=== PATIENT | female | born 1955 | race Caucasian/White ===

== ENCOUNTER → 2021-06-17 | Outpatient (CLI) | payer OTHER, MEDICAID ==
[~2021-06-17] MED LIST: AMITRIPTYLINE100 MG PO; BELSOMRA15 MG PO; COZAAR 25 MG TA25 M1 PO; CYMBALTA30 MG PO; CYMBALTA60 MG PO; FLEXERIL PO; HUMALOG100 UNIT/1 SUBQ; HYDROCODON-ACE1 EAC7 PO; LANTUS SUBQ; LEVO-T25 MCG PO; NEURONTIN300 MG PO; NEXIUM 40 MG CA40 M1 PO; NORVASC10 MG PO; ONDANSETRON HCL4 M2 PO; PERCOCET 10-321 EAC1 PO; PERCOCET 7.5-31 EAC1 PO; TOPROL XL25 MG PO; ZENPEP DR 15,01 EACH PO
== END ==
LOC: M.PC 10:14
PROVIDERS: ATTEND Anesthesiology Pain Medicine
DX: M54.16 Radiculopathy, lumbar region (principal); B02.9 Zoster without complications; E11.9 Type 2 diabetes mellitus without complications; E11.622 Type 2 diabetes mellitus with other skin ulcer; F32.9 Major depressive disorder, single episode, unspecified; F41.9 Anxiety disorder, unspecified; K76.0 Fatty (change of) liver, not elsewhere classified; Z86.73 Personal history of transient ischemic attack (TIA), and cerebral infarction without residual deficits

== ENCOUNTER → 2021-06-26 | Outpatient (CLI) | payer OTHER, MEDICAID | END | disposition home or self-care (01) | LOC: M.PC 10:10 | PROVIDERS: ATTEND Anesthesiology Pain Medicine | DX: G89.29 Other chronic pain (principal); M54.16 Radiculopathy, lumbar region; M25.561 Pain in right knee; Z98.890 Other specified postprocedural states; Z79.899 Other long term (current) drug therapy ==

== ENCOUNTER → 2021-07-24 | Outpatient (CLI) | payer OTHER, MEDICAID ==
[~2021-07-24] MED LIST changes: +LIDODERM1 EACH TOP; +NEURONTIN600 MG PO
== END ==
LOC: M.PC 09:10
PROVIDERS: ATTEND Anesthesiology Pain Medicine
DX: M54.16 Radiculopathy, lumbar region (principal); M54.17 Radiculopathy, lumbosacral region; M96.1 Postlaminectomy syndrome, not elsewhere classified; I10 Essential (primary) hypertension; E11.9 Type 2 diabetes mellitus without complications; Z90.49 Acquired absence of other specified parts of digestive tract; Z79.4 Long term (current) use of insulin; Z79.899 Other long term (current) drug therapy

== ENCOUNTER → 2021-08-05 | Outpatient (CLI) | payer OTHER, MEDICAID ==
[~2021-08-05] MED LIST changes: +VITAMIN D31250 MCG PO
== END | disposition home or self-care (01) ==
LOC: M.PC 11:43
PROVIDERS: ATTEND Anesthesiology Pain Medicine
DX: M54.16 Radiculopathy, lumbar region (principal); G89.29 Other chronic pain; I10 Essential (primary) hypertension; E11.9 Type 2 diabetes mellitus without complications; Z98.890 Other specified postprocedural states; Z90.49 Acquired absence of other specified parts of digestive tract; Z79.899 Other long term (current) drug therapy; Z86.73 Personal history of transient ischemic attack (TIA), and cerebral infarction without residual deficits

== ENCOUNTER → 2021-08-21 | Outpatient (CLI) | payer OTHER, MEDICAID | LOC: M.PC 10:50 | PROVIDERS: ATTEND Anesthesiology Pain Medicine | DX: M54.17 Radiculopathy, lumbosacral region (principal) ==

== ENCOUNTER → 2021-09-18 | Outpatient (CLI) | payer OTHER, MEDICAID | LOC: M.PC 07:43 | PROVIDERS: ATTEND Anesthesiology Pain Medicine | DX: M54.17 Radiculopathy, lumbosacral region (principal); E11.9 Type 2 diabetes mellitus without complications; I10 Essential (primary) hypertension; M19.90 Unspecified osteoarthritis, unspecified site; K76.0 Fatty (change of) liver, not elsewhere classified; L98.499 Non-pressure chronic ulcer of skin of other sites with unspecified severity; F41.8 Other specified anxiety disorders; Z79.4 Long term (current) use of insulin; Z79.899 Other long term (current) drug therapy; Z90.49 Acquired absence of other specified parts of digestive tract ==

== ENCOUNTER → 2021-10-21 | Outpatient (CLI) | payer OTHER, MEDICAID ==
[~2021-10-21] MED LIST changes: +NARCAN4 MG NARES
== END ==
LOC: M.PC 10-16 09:00
PROVIDERS: ATTEND Anesthesiology Pain Medicine
DX: M54.50 Low back pain, unspecified (principal); I10 Essential (primary) hypertension; M54.17 Radiculopathy, lumbosacral region; E11.8 Type 2 diabetes mellitus with unspecified complications; M19.90 Unspecified osteoarthritis, unspecified site; F32.A Depression, unspecified; F41.9 Anxiety disorder, unspecified; K76.0 Fatty (change of) liver, not elsewhere classified; L98.499 Non-pressure chronic ulcer of skin of other sites with unspecified severity; Z79.899 Other long term (current) drug therapy; Z79.4 Long term (current) use of insulin